=== PATIENT | female | born 1945 | race Caucasian/White ===

== ENCOUNTER 2017-08-04 11:53 | Day surgery (SDC) | payer MEDICARE, OTHER ==
[~2017-08-04] VITALS: Ht 172.7 cm; Wt 114.8 kg
[~2017-08-04 11:53] MED LIST: ASPIR-LOW81 MG PO; LISINOPRIL10 MG PO; METOPROLOL SUCC25 MG PO; PRESERVISION A1 EAC3 PO; PREVACID30 MG PO; SIMVASTATIN40 MG PO; THERA TEARS NU1 EACH PO; THERA TEARS15 ML OPTH
--- NOTE | 2017-08-04 15:02 | NUR ---
08/04/17 1502 Belia Lu AT BEDSIDE.
--- NOTE | 2017-08-09 13:40 | OR ---
[facility] [address], [place] [address] Signed DATE OF PROCEDURE: 08/04/17 PREOPERATIVE DIAGNOSES Ventral hernia, region of umbilicus. History of hyperplastic polyp. Constipation (episodic). POSTOPERATIVE DIAGNOSES Two small mucosal lesions, one ascending colon, the other sigmoid (excised). PROCEDURE Total colonoscopy to cecum with cold morcellation polypectomy x2. SURGEON: Cyn Francisco MD. ANESTHESIA: Intravenous sedation; Fentanyl 100 mcg, Versed at 5 mg. INDICATIONS A 70-year-old white woman has been evaluated by DEANDRE Campos and has been considered for surveillance colonoscopy. She underwent colonoscopy in 2007 where she was found to have a hyperplastic polyp. She has had constipation episodically. She has had no blood per rectum or diarrhea and has no family history of colon cancer. She is noted to have a bulge in the region of the umbilicus having undergone laparoscopic cholecystectomy in 2010. This may represent incisional hernia. Repair is planned for later this week. She is admitted at this time to undergo colonoscopy for surveillance as well as for her constipation problems, understands the risks of bleeding, infection, and perforation. FINDINGS The prep was excellent. Complete colonoscopy was undertaken. There was a small mucosal lesion of the proximal ascending colon and another in the sigmoid area, which most likely represent polyps. They may represent hyperplasia. There was no other abnormality of concern. Both polyps were excised. PROCEDURE The patient was brought to the endoscopy suite and placed in lateral decubitus position, given intravenous sedation a point of slurred speech and nystagmus. Digital rectal examination was normal. An Olympus video colonoscope was passed in the rectum and manipulated throughout the colon ultimately intubating the right colon and cecum. Upon withdrawal of scope, a small mucosal lesion at the junction of the cecum and the ascending colon was noted. It was Electronically Signed By: CYN FRANCISCO MD 08/09/17 1340 PATIENT NAME: ANYI BINGHAM OPERATIVE REPORT DATE OF : 41 PHYSICIAN: CYN FRANCISCO MD REPORT #: [id number] REPORT IS CONFIDENTIAL AND NOT TO BE RELEASED WITHOUT AUTHORIZATION [facility] [address], [place] [address] Signed unclear if this representing adenoma even with narrow band imaging. Cold morcellation excision was undertaken of the lesion. The scope was further withdrawn. There were no other abnormalities until approximately 40 cm from the anal verge where a small areas suggestive of a polyp was noted. This was excised with cold morcellation technique as well. Further withdrawal of scope showed no other abnormality. Retroflexed view of the rectum was normal. Scope was removed. The patient was taken recovery room in good condition. CONCLUDING DIAGNOSIS Polyps x2. PLAN She will continue with our plan for repair of the incisional hernia later in the week. We will review pathology regarding these mucosal lesions that were excised. MD SALO Escobar/Nori /[id number] cc: DEANDRE Campos Electronically Signed By: CYN FRANCISCO MD 08/09/17 1340 PATIENT NAME: ANYI BINGHAM OPERATIVE REPORT DATE OF : 41 PHYSICIAN: CYN FRANCISCO MD REPORT #: [id number] REPORT IS CONFIDENTIAL AND NOT TO BE RELEASED WITHOUT AUTHORIZATION
== END 2017-08-04 15:15 | disposition home or self-care (01) ==
LOC: DS 11:53 → OPS 11:53 → DS 14:00 → OPS 14:00
PROVIDERS: Surgery
PROC: 0DBN8ZX Excision of Sigmoid Colon, Via Natural or Artificial Opening Endoscopic, Diagnostic (ICD-10-PCS; 2017-08-04)
PROC: 0DBH8ZX Excision of Cecum, Via Natural or Artificial Opening Endoscopic, Diagnostic (ICD-10-PCS; principal; 2017-08-04 14:00)
DX: D12.0 Benign neoplasm of cecum (principal); K63.5 Polyp of colon; K21.9 Gastro-esophageal reflux disease without esophagitis; I25.2 Old myocardial infarction; E66.9 Obesity, unspecified; K43.2 Incisional hernia without obstruction or gangrene; K43.9 Ventral hernia without obstruction or gangrene; Z86.010 Personal history of colon polyps; Z88.5 Allergy status to narcotic agent; Z79.899 Other long term (current) drug therapy; Z90.49 Acquired absence of other specified parts of digestive tract; Z90.89 Acquired absence of other organs; Z98.890 Other specified postprocedural states; Z68.38 Body mass index [BMI] 38.0-38.9, adult
CPT/HCPCS: 88305; 99152; 99153; J2250; J3010; J7120

== ENCOUNTER 2017-08-07 05:35 | Observation (INO) | payer MEDICARE, OTHER ==
[~2017-08-07] VITALS: Ht 172.7 cm; Wt 113.8 kg
[2017-08-07] MEDS ORDERED: HYDROMORPHONE HC4 MG PO (10:11)
[2017-08-07] MEDS ORDERED: MAPAP325 MG PO (10:12)
--- NOTE | 2017-08-07 10:13 | NUR ---
08/07/17 1013 Milvia Kang 1004 PATIENT ARRIVES ASLEEP, OPENS EYES TO PAINFUL STIMULI, BUT DOES NOT FOLLOW COMMANDS, THEN BACK TO SLEEP. RESP EVEN AND UNLABORED, MASK AT 10 LITERS.
--- NOTE | 2017-08-07 11:26 | NUR ---
PT IS BACK TO DS FROM PACU. PT WILL WAKE UP TO STIMULUS, BUT QUICKLY FALLS BACK TO SLEEP. NO C/O'S PAIN. CALL LIGHT WITHIN REACH. NO OTHER C/O'S AT THIS TIME. WILL GET WATER FOR THE BEDSIDE. WILL REASSESS WITHIN THE HOUR.
--- NOTE | 2017-08-07 12:20 | NUR ---
PT IS REPORTING THE START OF SOME PAIN. SHE TOLERATES SIPS OF WATER. QUICKLY FALLS BACK ASLEEP. NO OTHER C/O'S AT THIS TIME.
--- NOTE | 2017-08-07 13:53 | NUR ---
PT IS AWAKE, REPORTS FEELING BETTER RAITING PAIN 2/10. STATES SHE ISN'T THAT HUNGRY RIGHT NOW. SHE IS SITING COMFTABLY IN BED. NO OTHER C/O'S THIS TIME. WILL REASSESS WITHIN THE HOUR.
--- NOTE | 2017-08-07 14:04 | NUR ---
PT REQUESTS SALTINE CRACKERS. DISCHARGE CRITERIA GONE OVER WITH PT, SHE VERBALIZES UNDERSTANDING.
--- NOTE | 2017-08-07 16:09 | NUR ---
1530: CALL LIGHT PUT ON BY PATIENT. PATIENT REQUESTED TO GET UP TO BATHROOM. SOME BLOODY DRAINAGE NOTED ON GOWN, SO CHECKED DRESSINGS. MILE DRAIN DRESSING WITH MODERATE AMOUNT OF BLOODY DRAINAGE. ALSO MILE DRAIN MODERATELY FULL. MILE DRAIN DRAINED FOR 38 ML OF SERSANGUINOUS FLUID. PATIENT THEN ASSISTED OOB AND TO BATHROOM. WHILE ATTEMPTING TO VOID, MILE DRAIN SITE HAD INCREASE IN DRAINAGE, DRIPING DOWN RIGHT LEG AND ONTO BATHROOM FLOOR. DR. FRANCISCO NOTIFIED VIA PHONE. STATED HE WILL COME TO SEE PATIENT. PATIENT UNABLE TO VOID. PATIENT ASSISTED BACK TO ROOM. DR FRANCISCO IN TO ASSESS MILE DRAIN SITE. ORDERS RECEIVED TO REMOVE DRESSING AND REPLACE WITH DRY GUAZE. 1600: MILE DRAIN MEPILEX REMOVED. BLOOD WASHED OFF PATIENT'S SKIN. DRY GUAZE THEN PLACED AROUND MILE DRAIN AND TAPED IN PLACE. ABDOMINAL BINDER THEN REPOSITIONED AND REPLACED SO THAT IT WAS COMPLETELY COVERING INCISIONAL HERNIA REPAIR SURGICAL SITE. PATIENT THEN BLADDER SCANNED FOR APPROXIMATELY 422 ML. PATIENT STATES STARTING TO FEEL "LIKE I HAVE TO GO TO THE BATHROOM" BUT NOT TOO UNCOMFORTABLE. REFILLED ICE WATER. LEFT TO GO HOME FOR THE NIGHT. CALL LIGHT WITHIN REACH.
--- NOTE | 2017-08-07 16:24 | NUR ---
PT IS UP OOB WITH STANDBY ASSIST TO GO TO THE BATHROOM. PT STATES SHE WILL TRY AND GO TO THE BATHROOM AGAIN BEFORE THERE IS A NEED OF BEING CATHED.
--- NOTE | 2017-08-07 16:50 | NUR ---
PT RECEIVED FROM DAY SURGERY RN. PT TRANSFERED TO BED. PT DENIES PAIN. PT ON ROOM AIR, LUNG SOUNDS CLEAR. PT DENIES PAIN. PT DENIES NAUSEA, BOWEL TONES ACTIVE, ASSISTED WITH ORDERING DINNER. PT WITH ABD BINDER, MIDLINE DRESSING CDI, JORDAN DRAIN TO RLQ IN PLACE, DRAINING SANGUINOUS FLUID. PT FEELS LIKE SHE WILL NEED TO VOID SOON, INSTRUCTED TO CALL FOR ASSISTANCE. PT DENIES OTHER NEEDS AT THIS TIME.
--- NOTE | 2017-08-07 16:56 | NUR ---
LE 165: PT TRANSFERRED TO MED/SURG VIA STRETCHER. ALL HER BELONGINGS WERE GATHERED AND TAKEN DOWN WITH HER. PT TRANSFERS HERSELF TO THE BED. REPORT GIVEN TO MED/REAL ESTATE INSPECTOR. THE INERSTION SITE OF THE DRAIN LOOKE AT TOGETHER.
--- NOTE | 2017-08-07 18:07 | NUR ---
urine was yellow in color. pt reports having to void but had to wait 5 or so minutes before being able to empty small amount
--- NOTE | 2017-08-07 18:12 | NUR ---
PT ASSISTED TO RESTROOM, ATTEMPTING TO VOID, INSTRUCTED TO PULL CALL LIGHT WHEN READY TO RETURN TO CHAIR.
--- NOTE | 2017-08-07 18:17 | NUR ---
PT RECEIVED FROM DAY SURGERY. PT DENIES PAIN, HAS NOT RECEIVED PAIN MEDICATION. PT ON ROOM AIR, LUNG SOUNDS CLEAR. PT TOLERATING REGULAR DIET, BOWEL TONES ACTIVE. PT WITH ABD INCISION, DRESSING CDI, ABD BINDER IN PLACE, JORDAN TO RLQ, DRAING SANGUINOUS FLUID, SMALL AMOUNT OF DRAINAGE FROM INSERTION SITE. PT HAVING DIFFICULTY VOIDING, MONITOR. UP WITH SBA.
--- NOTE | 2017-08-07 18:32 | NUR ---
PT CONTINUES TO HAVE DIFFICULTY VOIDING. BLADDER SCANNED FOR 675. NOTIFIED, TELEPHONE ORDER TO SRAIGHT CATH NOW.
--- NOTE | 2017-08-07 18:50 | NUR ---
PT STRAIGHT CATH PER MD ORDER. 800 ML OF YELLOW URINE DRAINED. PT TOLERATED PROCEDURE WELL.
--- NOTE | 2017-08-07 19:20 | NUR ---
REPORT RECV'D FROM TRISTAN GREEN. IN TO SEE PT, PT IN BED WATCHING TV. NO C/O PAIN OR NAUSEA AT THIS TIME. PT STATES SHE FEELS "A LITTLE BIT SORE." MIDLINE DRESSING C/D/I. JORDAN NOTED TO HAVE A QUARTER SIZE AMOUNT OF BLOODY DRAINAGE AROUND THE SITE DRSG. IVF D5LR @ 85 MLS INFUSING. NO FURTHER NEEDS AT THIS TIME. CALL LIGHT IN REACH.
--- NOTE | 2017-08-07 21:00 | NUR ---
IN TO CHECK ON PT, PT AWAKE WATCHING TV. PT C/O 4/10 LOW BACK PAIN FROM LAYING IN BED. PRN TYLENOL GIVEN. PT UP TO CHAIR. TOLERATED WELL. NO FURTHER NEEDS AT THIS TIME. CALL LIGHT IN REACH.
--- NOTE | 2017-08-07 22:32 | NUR ---
IN TO CHECK ON PT, PT UP IN CHAIR WATCHING TV. PT STATES HER BACK PAIN IS BETTER. NO FURTHER NEEDS AT THIS TIME. CALL LIGHT IN REACH.
--- NOTE | 2017-08-07 23:12 | NUR ---
PT CALLED, UP TO BATHRROM WITH STANDBY ASSIST FROM COMMUNITY [facility] PROGRAM REPRESENTATIVE. PT AMBULATING IN [place], TOLERATED WELL. NO FURTHER NEEDS AT THIS TIME. PT BACK TO ROOM.
--- NOTE | 2017-08-08 00:14 | NUR ---
IN TO CHECK ON PT, PT SLEEPING IN CHAIR. NO APPARENT DISTRESS NOTED. RR EVEN AND UNLABORED. CALL LIGHT IN REACH.
--- NOTE | 2017-08-08 01:56 | NUR ---
IN TO CHECK ON PT, PT AWAKE IN CHAIR. VITALS OBTAINED BY SUPERVISOR COIL WINDING. PT DENIES PAIN AT THIS TIME. ASSISTED UP TO BATHROOM STANDBY ASSIST FROM SUPERVISOR COIL WINDING. PT TOLERATED WELL. NO FURTHER COMPLAINTS AT THIS TIME. CALL LIGHT IN REACH.
--- NOTE | 2017-08-08 03:15 | NUR ---
IN TO CHECK ON PT, PT SITTING UP IN CHAIR. JORDAN ABEBEG REINFORCED. PT ASSISTED UP TO BATHROOM STANDBY ASSIST. TOLERATED WELL. DENIES DIZZINES, PAIN AN MAUSEA. PT ASSISTED BACK TO CHAIR. NO FURTHER NEEDS AT THIS TIME. CALL LIGHT IN REACH.
--- NOTE | 2017-08-08 05:48 | NUR ---
PT HAS HAD UNEVETFULL SHIFT. PT HAS HAD LITTLE SLEEP. PT GIVEN TYLENOL X2 FOR LOW BACK PAIN AND ABDONINAL PAIN. MIDLINE DRSG IS C/D/I. JORDAN DRSG HAS A QUARTER SIZE AMOUNT OF SNAGUINEOUS DRAINAGE NOTED, REINFORCED X2. JORDAN WITH SANGUINEOUS DAINAGE NOTED. D5LR @ 85 MLS INFUSING INTO IV SITE IN THE R HAND. PT HAS BEEN ABLE TO VOID, UO QS. DENIES NAUSEA, TAKING PO FLUIDS WELL. PT ON RA. STANDBY ASSIST TO AMBULATE AND UP TO BATHROOM.
--- NOTE | 2017-08-08 08:48 | NUR ---
PATIENT SITTING UP IN RECLINER, URINATING FREQUENTLY. PATIENT IS SL. EATING REGULAR FOOD, NO NAUSEA OR VOMITTING. PAIN RATES 2/10 ON PAIN SCALE. PATIENT REPORTS TYLENOL CONTROLS PAIN WELL. DRAIN SITE VERY SCANT AMOUNT OF BLOOD ON GAUZE, CHANGED THIS MORNING AND PLACED ABD OVER TOP. BLOOD DRAINAGE IN JORDAN, AMOUNT HAS DECREASED FROM HS.
--- NOTE | 2017-08-09 13:40 | OR ---
[facility] [address], [place] [address] Signed DATE OF PROCEDURE: 08/07/17 PREOPERATIVE DIAGNOSES Incisional hernia at umbilicus, trocar site (laparoscopic cholecystectomy 2010). Obesity. POSTOPERATIVE DIAGNOSIS Double defect hernia at the trocar site with attenuated fascia cephalad and inferiorly (complex hernia). PROCEDURE PERFORMED Repair of incisional hernia (complex) with implantation of Prolene mesh in the retrorectus space and drain placement. SURGEON: Cyn Francisco MD. ANESTHESIA General endotracheal (Cyn Obando CRNA) and local 20 mL of 0.25% Marcaine with Epinephrine. INDICATION This 71-year-old white woman underwent laparoscopic cholecystectomy by ks in 2010. She did well from the operation. In the past several months, she has noticed fullness at the umbilicus. Clinical examination shows a small trocar site inferior to the umbilicus and a rather bulky hernia in the area. This most likely represents an incisional hernia particularly given her obesity. She is admitted at this time for repair. She understands the risks of bleeding, infection, recurrence and so forth and wished to proceed. Of note, she underwent colonoscopy recently, which was normal. FINDINGS A small incision was maintained for the operation though the actual dissection beneath the incision was quite a bit more cephalad, lateral, and inferior. There were 2 defects, one likely players club representative of the trocar site which was small, may be a centimeter at most and another rather larger 5 cm fascial defect. There is attenuation of the midline fascia (linea alba) superior and inferiorly. Ultimately, the defect was noted to be approximately 6 cm in aggregate, but overlap of the defect in underlay repair technique by at least 6 cm circumferentially and probably 10 cm superiorly and inferiorly was accomplished. Though complete fascial reapproximation could not be undertaken. The mesh was implanted in the retro rectus space with the peritoneal and posterior rectus sheath having been approximated as a barrier to intraabdominal organs in relation to the mesh itself. Prolene pledgets were used to better secure the fascial repair sutures. A drain was placed as well. Electronically Signed By: CYN FRANCISCO MD 08/09/17 1340 PATIENT NAME: ANYI BINGHAM OPERATIVE REPORT DATE OF : 41 PHYSICIAN: CYN FRANCISCO MD REPORT #: [id number] REPORT IS CONFIDENTIAL AND NOT TO BE RELEASED WITHOUT AUTHORIZATION [facility] [address], [place] [address] Signed DESCRIPTION OF PROCEDURE The patient was brought to the operating room, given a general endotracheal anesthetic. Preoperative antibiotic Ancef was given. Sequential compression device stockings used and heparin subcutaneously administered. The abdomen was prepared with a Chlorhexidine solution and draped sterilely. She does have obesity. The previous incision was in the infraumbilical space. An incision was made inferior to this in the midline approximately 4-5 cm and taken around the left lateral aspect of the incision. Dissection was carried through the subcutaneous tissue with blunt and electrocautery dissection. Ultimately identifying a chronic hernia sac. This showed no sign of incarcerated viscus. This was dissected free from the surrounding subcutaneous tissue and down to the fascial layer itself. The fascial defect associated with this was approximately 3-4 cm. Cephalad to this however there was a fascial defect more likely consistent with a trocar site from the past. This was about a centimeter or so. The bridge of fascia between the 2 defects was incised. Using blunt dissection, the fascia was from the underlying peritoneum, which was rather adherent causing a defect in the hernia sac and revealing the intraabdominal viscera, particularly the omentum which was generous. The space was developed behind the rectus muscle circumferentially, so as to provide a biologic barrier for implantation of mesh in the properitoneal space. This was a long and laborious tasks, but was accomplished safely extending the dissection from the edge of the fascial defect at least length of my finger, which is approximately 9 cm. This was undertaken cephalad as well. The defect in the retrorectus fascia with its densely adherent peritoneum was reapproximated with running 2-0 Vicryl suture providing a biologic barrier from the retrorectus space to the intraabdominal viscera. A 12 inch x 12 inch piece of Prolene mesh was cut to an elliptical configuration and secured in an underlay technique with interrupted 0 Prolene sutures and Prolene pledgets. The fascial defect was reapproximated as much as possible in a similar way. The overlap from the fascial defect was at least 6 cm and probably longer superiorly and inferiorly. Through a stab incision a 7-mm flat Antonio drain was placed. During the mid-portion of the operation, she was redosed with Ancef 2 g, intravenously administered. The fascial defect was reapproximated as much as possible, but there did remain some area that fascial reapproximation cannot be assured. This was approximately 4 x 3 cm. The drain was secured into the subcutaneous tissue area. Overlying, the closure of the fascia. Elsie's layer was reapproximated with interrupted 2-0 Vicryl and skin closed with running subcuticular 3-0 Vicryl. Steri-Strips were applied as was Mepilex silver sponge dressing. The drain was attached to bulb suction. Upon emerging from anesthesia, she had a fair amount of vigorous straining and coughing for which hand stabilization of the operative site was undertaken. An abdominal binder was applied as well. Ultimately, she settled down and pressure could be relieved from the operative Electronically Signed By: CYN FRANCISCO MD 08/09/17 1340 PATIENT NAME: ANYI BINGHAM OPERATIVE REPORT DATE OF : 41 PHYSICIAN: CYN FRANCISCO MD REPORT #: [id number] REPORT IS CONFIDENTIAL AND NOT TO BE RELEASED WITHOUT AUTHORIZATION [facility] [address] [place] [id number] Signed site. There appeared to be no sign of disruption of the hernia repair. The patient was transferred to [facility] in good condition having suffered no complications. Sponge, needle, and counts reported as correct x3. BLOOD LOSS: 25 cc or less. MD SALO Escobar/Nori /[id number] cc: DEANDRE Wallis Electronically Signed By: CYN FRANCISCO MD 08/09/17 1340 PATIENT NAME: ANYI BINGHAM OPERATIVE REPORT DATE OF : 41 PHYSICIAN: CYN FRANCISCO MD REPORT #: [id number] REPORT IS CONFIDENTIAL AND NOT TO BE RELEASED WITHOUT AUTHORIZATION
== END 2017-08-08 13:00 | disposition home or self-care (01) ==
LOC: DS 05:35 → MS 11:30 → DS 11:30 → MS 16:45 → DS 16:46 → MS 08-08 13:00
PROVIDERS: ADMIT Surgery
PROC: 0WUF0JZ Supplement Abdominal Wall with Synthetic Substitute, Open Approach (ICD-10-PCS; principal; 2017-08-07 06:45)
DX: K43.2 Incisional hernia without obstruction or gangrene (principal); E66.9 Obesity, unspecified; E78.00 Pure hypercholesterolemia, unspecified; K21.9 Gastro-esophageal reflux disease without esophagitis; I25.2 Old myocardial infarction; Z68.38 Body mass index [BMI] 38.0-38.9, adult; Z88.1 Allergy status to other antibiotic agents; Z88.5 Allergy status to narcotic agent; Z90.49 Acquired absence of other specified parts of digestive tract; Z90.89 Acquired absence of other organs; Z95.5 Presence of coronary angioplasty implant and graft; Z86.010 Personal history of colon polyps; Z79.82 Long term (current) use of aspirin; Z79.899 Other long term (current) drug therapy; Z98.890 Other specified postprocedural states
CPT/HCPCS: 00750; 36415; 51701; 51798; 85025; 96360; 96361; C1781; G0378; J0330; J0690; J1100; J1644; J1885; J2250; J2405; J2704; J2710; J2765; J3010; J7120

== ENCOUNTER 2020-07-24 15:40 | Emergency (ER) | payer MEDICARE, OTHER ==
[~2020-07-24] VITALS: Ht 172.7 cm; Wt 113.8 kg
[~2020-07-24 15:40] MED LIST changes: +HYDROMORPHONE HC4 MG PO; +MAPAP325 MG PO
--- OUTSIDE RECORDS SUMMARY | 2020-07-24 15:42 | XMS ---
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 EColeen VISIT COUNT (12 MO.) 1 [facility] Shahla Charlton [address] [place] [address] TOTAL 2 NOTE: Visits indicate total known visits. ED/UCC VISIT TRACKING (12 MO.) 07/24/2020 15:41 [facility] TYPE: Emergency COMPLAINT: - COUGH, SOB [facility] 12[facility] [place] [facility]: Emergency INPATIENT VISIT TRACKING (12 MO.) No inpatient visits to display in this time frame [id number]
== END 2020-07-24 19:15 | disposition home or self-care (01) ==
LOC: ED 15:40
DX: U07.1 COVID-19 (principal); R06.02 Shortness of breath; I48.91 Unspecified atrial fibrillation; Z88.1 Allergy status to other antibiotic agents; Z88.5 Allergy status to narcotic agent; Z91.048 Other nonmedicinal substance allergy status; Z79.899 Other long term (current) drug therapy; Z79.82 Long term (current) use of aspirin
CPT/HCPCS: 71045; 94640; 99284-25; J1100

== ENCOUNTER 2023-05-19 11:47 | Day surgery (SDC) | payer MEDICARE, OTHER ==
[~2023-05-19] VITALS: Ht 172.7 cm; Wt 93.2 kg
[~2023-05-19 11:47] MED LIST changes: +ELIQUIS5 MG PO; +LIPITOR40 MG PO
[2023-05-19 12:08] VITALS: BP 114/61
--- NOTE | 2023-05-19 12:13 | NUR ---
THIS RN TO ROOM TO ASSIST WITH IV START. IV STARTED PER PROTOCOL. BRISK BLOOD RETURN SEEN. IV FLUIDS STARTED (SEE MAR), SCANNED BY PETER MCGILL. PT TOLERATED WELL. NO ADDITIONAL REQUESTS OR COMPLAINTS. CALL LIGHT WITHIN REACH.
--- NOTE | 2023-05-19 13:43 | NUR ---
05/19/23 1343 Anabelle Nettles 1330 PT TO PACU ALERT AND AWAKE ASKING QUESTIONS ABOUT PROCEDURE.
[2023-05-19 14:08] VITALS: BP 109/74
--- NOTE | 2023-05-19 18:08 | OR ---
[facility] [address] [place], [place] [address] Signed DATE OF OPERATION: 05/19/2023 SURGEON: Cyn Francisco MD PREOPERATIVE DIAGNOSES: 1. Episodic constipation and hemorrhoids. 2. History of diverticulosis. 3. Chronic anticoagulation (Eliquis related to AFib). POSTOPERATIVE DIAGNOSES: 1. Sigmoid diverticulosis. 2. Two small polyps of rectosigmoid. 3. External hemorrhoidal change. PROCEDURE: Total colonoscopy to cecum with cold morcellation polypectomy x1 and cold snare polypectomy x1. ANESTHESIA: Intravenous sedation; fentanyl 100 mcg and Versed 5 mg. INDICATION: This 77-year-old white woman who is a patient of DEANDRE Campos. She has had colonoscopy in the past confirming diverticulosis. This was in 2017. Additionally, she had a tubular adenoma and serrated adenoma in 2017. She is having no blood per rectum, but she does describe "severe constipation." She also has a feeling of "blockage" in the low rectum from time to time associated with her constipation. She does complain of "hemorrhoids" as well. She is admitted at this time to undergo colonoscopy. She understands the risk of bleeding, infection, and perforation. Notably, she also has atrial fibrillation for which she takes Eliquis and has been off this for three days. FINDINGS: The prep was good. Complete colonoscopy was undertaken to the cecum without question. She had diverticula of the sigmoid and left colon. In the rectosigmoid, she had two small polyps, both excised with cold technique one with snare, the other with morcellation technique. Retroflexed view showed minimal internal hemorrhoidal change, which did have significant external hemorrhoidal disease. DESCRIPTION OF PROCEDURE: The patient was brought to the endoscopy suite and placed in lateral decubitus position, Electronically Signed By: CYN FRANCISCO MD 05/19/23 1808 PATIENT NAME: ANYI BINGHAM OPERATIVE REPORT DATE OF : 41 REPORT #: [id number] PHYSICIAN: CYN FRANCISCO MD PCP: TORY BREWSTER REPORT IS CONFIDENTIAL AND NOT TO BE RELEASED WITHOUT AUTHORIZATION [facility] [address], [place] [address] Signed given intravenous sedation to the point of slurred speech and nystagmus. Digital rectal examination showed external hemorrhoidal change. An Olympus video colonoscope was passed into the rectum and manipulated throughout the colon, ultimately intubating the cecum. The ileocecal valve and appendiceal orifice were normal. Scope was withdrawn from that point. Examination throughout showed no sign of abnormality other than diverticula of the sigmoid and left colon, into the rectosigmoid where a small adenomatous appearing polyp was noted. This was excised with cold snare technique. Directly across from this was another small polyp, which was excised with cold morcellation technique. Both were passed for pathology. Retroflexed view showed minimal internal hemorrhoidal component. The external examination confirmed external hemorrhoidal disease. The scope was removed, the patient was taken to the recovery room in good condition. CONCLUSION DIAGNOSIS: Polyps x2 and diverticulosis. External hemorrhoidal changes. PLAN: Recommend Metamucil one scoop p.o. daily as well as MiraLAX 1 scoop p.o. daily. We would recommend repeat colonoscopy in 3-5 years based on the polyps found, sooner if clinically indicated. She will return to see us if she is still bothered by constipation or the external hemorrhoidal problem that she has. She will otherwise return to the ongoing care of Tory Brewster. MD SALO Escobar/JAZIEL /[id number] cc: DEANDRE Campos Copies: TORY BREWSTER ~ Electronically Signed By: CYN FRANCISCO MD 05/19/23 1808 PATIENT NAME: ANYI BINGHAM OPERATIVE REPORT DATE OF : 41 REPORT #: [id number] PHYSICIAN: CYN FRANCISCO MD PCP: TORY BREWSTER REPORT IS CONFIDENTIAL AND NOT TO BE RELEASED WITHOUT AUTHORIZATION
== END 2023-05-19 14:30 | disposition home or self-care (01) ==
LOC: OPS 11:47 → DS 11:54 → OPS 13:00 → DS 13:00 → OPS 14:30
PROVIDERS: ATTEND Surgery
PROC: 0DBP8ZZ Excision of Rectum, Via Natural or Artificial Opening Endoscopic (ICD-10-PCS; principal; 2023-05-19 13:00)
DX: K59.09 Other constipation (principal); I48.91 Unspecified atrial fibrillation; Z79.01 Long term (current) use of anticoagulants; I10 Essential (primary) hypertension; E66.9 Obesity, unspecified; Z90.49 Acquired absence of other specified parts of digestive tract; Z68.31 Body mass index [BMI] 31.0-31.9, adult; K57.30 Diverticulosis of large intestine without perforation or abscess without bleeding; K64.4 Residual hemorrhoidal skin tags; K64.8 Other hemorrhoids; K62.1 Rectal polyp
CPT/HCPCS: 99153; G0500; J2250; J3010; J7121